=== PATIENT | female | born 1975 | race Caucasian/White ===

== ENCOUNTER 2025-01-15 07:00 | Day surgery (SDC) | payer OTHER ==
[2025-01-09 13:54] VITALS: BP 151/85
[~2025-01-15] VITALS: Ht 167.6 cm; Wt 68.0 kg
[~2025-01-15 07:00] MED LIST: COCET TABLET1 EACH; DOLOGEN CAPLET1 TAB PO; FIORICET TABLET1 TAB PO; FLEXERIL10 MG PO; NEURONTIN300 MG PO; NEURONTIN600 MG PO; ORPH100T; TENCON CAPSULE1 CAP
[2025-01-15] MEDS ORDERED: POVIDONE-IODINE 118 ML BOTT TOP ONE (08:20)
[2025-01-15] MEDS ORDERED: METRONIDAZOLE/SODIUM CHLORIDE 500 MG/100 ML PIGGYBACK IV ONE (08:20)
[2025-01-15] MEDS ORDERED: TRAM1TAB98 PO (13:56)
== END 2025-01-15 16:55 | disposition home or self-care (01) ==
LOC: CIR.AMB 07:00
PROVIDERS: ATTEND Obstetrics & Gynecology Gynecology
DX: N70.11 Chronic salpingitis (principal); N73.6 Female pelvic peritoneal adhesions (postinfective); R10.20 Pelvic and perineal pain unspecified side